=== PATIENT | female | born 1985 | race American Indian/Alaskan Native ===

== ENCOUNTER 2017-02-20 00:58 | Emergency (ER) | payer OTHER ==
--- NOTE | 2017-02-20 02:13 | EDM.PDOC ---
ED HPI Skin/Rash - General Chief Complaint: Laceration Stated Complaint: HEAD WOUND Time Seen by Provider: 02/20/17 02:12 - History of Present Illness INITIAL COMMENTS - FREE TEXT/NARRATIVE: HISTORY AND PHYSICAL: History of present illness: Patient 31-year-old female presents status post fall which she sustained an injury to right face with no loss of consciousness. Review of systems: As per history of present illness and below otherwise all systems reviewed and negative. Past medical history: As per history of present illness and as reviewed below otherwise noncontributory. Surgical history: As per history of present illness and as reviewed below otherwise noncontributory. Social history: No reported history of drug or alcohol abuse. Family history: As per history of present illness and as reviewed below otherwise noncontributory. Physical exam: HEENT: Patient has approximately 3/4 cm moderate depth laceration above her right eye that no bony step off no depression is good hemostasis., normocephalic , pupils reactive, negative for conjunctival pallor or scleral icterus, mucous membranes moist, throat clear, neck supple, nontender, trachea midline. Lungs: Clear to auscultation, breath sounds equal bilaterally, chest nontender. Heart: S1S2, regular, negative for clicks, rubs, or JVD. Abdomen: Soft, nondistended, nontender. Negative for masses or hepatosplenomegaly. Negative for costovertebral tenderness. Pelvis: Stable nontender. Genitourinary: Deferred. Rectal: Deferred. Extremities: Atraumatic, negative for cords or calf pain. Neurovascular unremarkable. Neuro: Awake, alert, oriented. Cranial nerves II through XII unremarkable. Cerebellum unremarkable. Motor and sensory unremarkable throughout. Exam nonfocal. Diagnostics: CT brain Therapeutics: Was irrigated and closed with Steri-Strips Impression: #1 observation status post fall #2 head injury #3 right facial laceration Definitive disposition and diagnosis as appropriate pending reevaluation and review of above. - Related Data Allergies Allergy/AdvReac Type Severity Reaction Status Date / Time No Known Allergies Allergy Verified 02/20/17 01:11 Home Meds: Ambulatory Orders Medication Instructions Recorded Confirmed . 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: Musculoskeletal History: Reports: None Neurological History: Reports: None Psychiatric History: Reports: None Endocrine/Metabolic History: Reports: None Hematologic History: Reports: None Dermatologic History: Reports: None - Infectious Disease History Infectious Disease History: Reports: None - Past Surgical History Female Surgical History: Reports: section, Hysterectomy Social & Family History - Family History Family Medical History: Noncontributory - Tobacco Use Smoking Status *Q: Never Smoker Second Hand Smoke Exposure: No - Caffeine Use Caffeine Use: Reports: None - Alcohol Use Days Per Week of Alcohol Use: 2 Number of Drinks Per Day: 1 Total Drinks Per Week: 2 - Recreational Drug Use Recreational Drug Use: No ED ROS GENERAL - Review of Systems Review Of Systems: ROS reveals no pertinent complaints other than HPI. ED EXAM, SKIN/RASH Exam: See Below (See dictation) Course - Vital Signs Last Recorded V/S: Last Vital Signs Temp 36.1 C 02/20/17 01:11 Pulse 90 02/20/17 01:11 Resp 16 02/20/17 01:11 BP 123/71 02/20/17 01:11 Pulse Ox 98 02/20/17 01:11 - Orders/Labs/Meds Orders: Active Orders 24 hr Category Date Time Status Head wo Cont [CT] Stat Exams 02/20/17 01:08 Taken Departure - Departure Time of Disposition: 02:12 Disposition: Home, Self-Care 01 Condition: good Clinical Impression: Head injury, Facial laceration Forms: ED Department Discharge Additional Instructions: The following information is given to patients seen in the emergency department who are being discharged to home. This information is to outline your options for follow-up care. We provide all patients seen in our emergency department with a follow-up referral. The need for follow-up, as well as the timing and circumstances, are variable depending upon the specifics of your emergency department visit. If you don't have a primary care physician on staff, we will provide you with a referral. We always advise you to contact your personal physician following an emergency department visit to inform them of the circumstance of the visit and for follow-up with them and/or the need for any referrals to a consulting specialist. The emergency department will also refer you to a specialist when appropriate. This referral assures that you have the opportunity for followup care with a specialist. All of these measure are taken in an effort to provide you with optimal care, which includes your followup. Under all circumstances we always encourage you to contact your private physician who remains a resource for coordinating your care. When calling for followup care, please make the office aware that this follow-up is from your recent emergency room visit. If for any reason you are refused follow-up, please contact the [facility] emergency department at and asked to speak to the emergency department charge nurse. Followup primary medical doctor one to 2 days Motrin or Tylenol as directed return as needed as discussed - My Orders Last 24 Hours: My Active Orders 02/20/17 01:08 Head wo Cont [CT] Stat - Assessment/Plan Last 24 Hours: My Active Orders 02/20/17 01:08 Head wo Cont [CT] Stat
[2017-02-20 02:42] VITALS: BP 99/62
--- NOTE | 2017-02-21 10:39 | CT ---
EXAM DATE: 02/20/17 PATIENT'S AGE: 31 Patient: BRANDY COLEY Facility: [place], [place] Site . Site : 1985 Study: CT Head [id number] 1:25:54 AM Ordering Physician: Doctor Joel Final Report: INDICATION: Injury TECHNIQUE: CT head without contrast. COMPARISON: None available FINDINGS: The ventricles and sulci demonstrate normal configuration and size. There is no mass effect or midline shift. There is no loss of parker-white differentiation. There is no evidence of gross acute intracranial hemorrhage. No acute calvarial fracture is seen. There is right maxillary sinus mucosal thickening. There is apparent opacification of few left mastoid tip air cells versus volume averaging. The visualized orbits are within normal limits. IMPRESSION: No evidence of a gross acute intracranial hemorrhage, mass effect or loss of parker-white differentiation. Dictated by Horacio Portillo MD @ 02/20/2017 1:59:39 AM Dictated by: Horacio Portillo MD @ 02/20/2017 01:59:45 (Electronic Signature) Report Signed by Proxy and Original Signed Document filed in the Medical Record. [facility]
== END 2017-02-20 02:30 | disposition home or self-care (01) ==
LOC: MW.ED 00:58
DX: S09.90XA Unspecified injury of head, initial encounter (principal); S01.111A Laceration without foreign body of right eyelid and periocular area, initial encounter; Z90.710 Acquired absence of both cervix and uterus; W19.XXXA Unspecified fall, initial encounter
CPT/HCPCS: 12011; 70450; 70450-26; 99283; 99283-25

== ENCOUNTER 2021-07-20 09:30 | Emergency (ER) | payer BC, OTHER ==
[2021-07-20] MEDS ORDERED: Sodium Chloride 0.9% 1,000 ML IV ONE (09:57)
--- NOTE | 2021-07-20 10:00 | EDM.PDOC ---
ED HPI GENERAL MEDICAL PROBLEM - General Chief Complaint: Gastrointestinal Problem Stated Complaint: ABDOMINAL PAIN Time Seen by Provider: 07/20/21 09:36 Source of Information: Reports: Patient History Limitations: Reports: No Limitations - History of Present Illness INITIAL COMMENTS - FREE TEXT/NARRATIVE: Patient is a 36-year-old female who presents today for diffuse abdominal pain. Patient states the pain started after having a drink of water this morning. She had pain this 15 years ago when she had a type of bowel obstruction. States she has had 3 C-sections and her uterus been removed in the past. The pain is diffuse and nonradiating not made better or worse with anything. She denies any vomiting. States she is having regular bowel movements still passing gas currently. Bilateral Abdominal Pain Score (Numeric/FACES): 8 - Related Data Allergies Allergy/AdvReac Type Severity Reaction Status Date / Time No Known Allergies Allergy Verified 07/20/21 09:45 Home Meds: Home Meds . 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: Musculoskeletal History: Reports: None Neurological History: Reports: None Psychiatric History: Reports: None Endocrine/Metabolic History: Reports: None Hematologic History: Reports: None Dermatologic History: Reports: None - Infectious Disease History Infectious Disease History: Reports: None - Past Surgical History Female Surgical History: Reports: Section, Hysterectomy Social & Family History - Family History Family Medical History: No Pertinent Family History - Tobacco Use Tobacco Use Status *Q: Never Tobacco User - Caffeine Use Caffeine Use: Reports: None - Recreational Drug Use Recreational Drug Use: No ED ROS GENERAL - Review of Systems Review Of Systems: See Below Constitutional: Reports: No Symptoms HEENT: Reports: No Symptoms Respiratory: Reports: No Symptoms Cardiovascular: Reports: No Symptoms Endocrine: Reports: No Symptoms GI/Abdominal: Reports: Abdominal Pain : Reports: No Symptoms Musculoskeletal: Reports: No Symptoms Skin: Reports: No Symptoms Neurological: Reports: No Symptoms Psychiatric: Reports: No Symptoms Hematologic/Lymphatic: Reports: No Symptoms Immunologic: Reports: No Symptoms ED EXAM, GI/ABD - Physical Exam Exam: See Below Exam Limited By: No Limitations General Appearance: Alert, WD/WN, No Apparent Distress Respiratory/Chest: No Respiratory Distress, Lungs Clear, Normal Breath Sounds Cardiovascular: Normal Peripheral Pulses, Regular Rate, Rhythm GI/Abdominal Exam: Normal Bowel Sounds, Soft, Non-Tender Neurological: Alert, Oriented, Normal Cognition, Normal Gait #1 Interpretation EKG Date: 07/20/21 Time: 09:36 Rhythm: NSR Rate (Beats/Min): 85 ST-T: Normal Course - Vital Signs Last Recorded V/S: Last Vital Signs Temp 97.8 F 07/20/21 14:01 Pulse 86 07/20/21 15:13 Resp 17 07/20/21 15:13 BP 112/73 07/20/21 15:13 Pulse Ox 97 07/20/21 15:13 - Orders/Labs/Meds Orders: Active Orders 24 hr Category Date Time Status CULTURE BLOOD [BC] Stat Lab 07/20/21 14:17 Received CULTURE BLOOD [BC] Stat Lab 07/20/21 14:23 Results Sodium Chloride 0.9% [Normal Saline] 1,000 ml Med 07/20/21 15:00 Active IV ASDIRECTED Blood Culture x2 Reflex Set [OM.PC] Stat Oth 07/20/21 14:03 Ordered Blood Culture x2 Reflex Set [OM.PC] Stat Oth 07/20/21 14:04 Ordered Medication Orders Sodium Chloride (Normal Saline) 1,000 mls @ 1,000 mls/hr IV ASDIRECTED JEROME Last Admin: 07/20/21 15:10 Dose: 1,000 mls/hr Documented by: ELLY Labs: Laboratory Tests 07/20/21 07/20/21 07/20/21 Range/Units 09:43 09:43 09:44 WBC 5.93 (4.0-11.0) K/uL RBC 4.51 (4.30-5.90) M/uL Hgb 13.3 (12.0-16.0) g/dL Hct 40.2 (36.0-46.0) % MCV 89.1 (80.0-98.0) fL MCH 29.5 (27.0-32.0) pg MCHC 33.1 (31.0-37.0) g/dL RDW Std Deviation 46.2 (28.0-62.0) fl RDW Coeff of Elisabeth 14 (11.0-15.0) % Plt Count 295 (150-400) K/uL MPV 11.50 (7.40-12.00) fL Neut % (Auto) 83.8 H (48.0-80.0) % Lymph % (Auto) 13.5 L (16.0-40.0) % [place] % (Auto) 1.5 (0.0-15.0) % Eos % (Auto) 1.0 (0.0-7.0) % Baso % (Auto) 0.2 (0.0-1.5) % Neut # (Auto) 5.0 (1.4-5.7) K/uL Lymph # (Auto) 0.8 (0.6-2.4) K/uL [place] # (Auto) 0.1 (0.0-0.8) K/uL Eos # (Auto) 0.1 (0.0-0.7) K/uL Baso # (Auto) 0.0 (0.0-0.1) K/uL Nucleated RBC % 0.0 /100WBC Nucleated RBCs # 0 K/uL Sodium 141 (136-145) mmol/L Potassium 3.8 (3.5-5.1) mmol/L Chloride 104 (98-107) mmol/L Carbon Dioxide 27.0 (21.0-32.0) mmol/L BUN 21 H (7.0-18.0) mg/dL Creatinine 0.9 (0.6-1.0) mg/dL Est Cr Clr Drug Dosing 74.62 mL/min Estimated GFR (MDRD) > 60.0 ml/min Glucose 100 (74-106) mg/dL Calcium 8.7 (8.5-10.1) mg/dL Phosphorus 2.9 (2.6-4.7) mg/dL Magnesium 1.8 (1.8-2.4) mg/dL Total Bilirubin 0.6 (0.2-1.0) mg/dL AST 27 (15-37) IU/L ALT 31 (14-63) IU/L Alkaline Phosphatase 68 (46-116) U/L Total Protein 6.8 (6.4-8.2) g/dL Albumin 3.5 (3.4-5.0) g/dL Globulin 3.3 (2.6-4.0) g/dL Albumin/Globulin Ratio 1.1 (0.9-1.6) Lipase 117 (73-393) U/L Urine Color YELLOW Urine Appearance SLT CLOUDY Urine pH 6.0 (5.0-8.0) Ur Specific [place] >= 1.030 (1.001-1.035) Urine Protein NEGATIVE (NEGATIVE) mg/dL Urine Glucose (UA) NEGATIVE (NEGATIVE) mg/dL Urine Ketones NEGATIVE (NEGATIVE) mg/dL Urine Occult Blood NEGATIVE (NEGATIVE) Urine Nitrite NEGATIVE (NEGATIVE) Urine Bilirubin NEGATIVE (NEGATIVE) Urine Urobilinogen 0.2 (<2.0) EU/dL Ur Leukocyte Esterase NEGATIVE (NEGATIVE) SARS-CoV-2 RNA (LAUREEN) (NEGATIVE) 07/20/21 Range/Units 13:59 WBC (4.0-11.0) K/uL RBC (4.30-5.90) M/uL Hgb (12.0-16.0) g/dL Hct (36.0-46.0) % MCV (80.0-98.0) fL MCH (27.0-32.0) pg MCHC (31.0-37.0) g/dL RDW Std Deviation (28.0-62.0) fl RDW Coeff of Elisabeth (11.0-15.0) % Plt Count (150-400) K/uL MPV (7.40-12.00) fL Neut % (Auto) (48.0-80.0) % Lymph % (Auto) (16.0-40.0) % [place] % (Auto) (0.0-15.0) % Eos % (Auto) (0.0-7.0) % Baso % (Auto) (0.0-1.5) % Neut # (Auto) (1.4-5.7) K/uL Lymph # (Auto) (0.6-2.4) K/uL [place] # (Auto) (0.0-0.8) K/uL Eos # (Auto) (0.0-0.7) K/uL Baso # (Auto) (0.0-0.1) K/uL Nucleated RBC % /100WBC Nucleated RBCs # K/uL Sodium (136-145) mmol/L Potassium (3.5-5.1) mmol/L Chloride (98-107) mmol/L Carbon Dioxide (21.0-32.0) mmol/L BUN (7.0-18.0) mg/dL Creatinine (0.6-1.0) mg/dL Est Cr Clr Drug Dosing mL/min Estimated GFR (MDRD) ml/min Glucose (74-106) mg/dL Calcium (8.5-10.1) mg/dL Phosphorus (2.6-4.7) mg/dL Magnesium (1.8-2.4) mg/dL Total Bilirubin (0.2-1.0) mg/dL AST (15-37) IU/L ALT (14-63) IU/L Alkaline Phosphatase (46-116) U/L Total Protein (6.4-8.2) g/dL Albumin (3.4-5.0) g/dL Globulin (2.6-4.0) g/dL Albumin/Globulin Ratio (0.9-1.6) Lipase (73-393) U/L Urine Color Urine Appearance Urine pH (5.0-8.0) Ur Specific [place] (1.001-1.035) Urine Protein (NEGATIVE) mg/dL Urine Glucose (UA) (NEGATIVE) mg/dL Urine Ketones (NEGATIVE) mg/dL Urine Occult Blood (NEGATIVE) Urine Nitrite (NEGATIVE) Urine Bilirubin (NEGATIVE) Urine Urobilinogen (<2.0) EU/dL Ur Leukocyte Esterase (NEGATIVE) SARS-CoV-2 RNA (LAUREEN) NEGATIVE (NEGATIVE) Meds: Medications Generic Name Dose Route Start Last Admin Trade Name Freq PRN Reason Stop Dose Admin Sodium Chloride 1,000 mls @ 1,000 mls/hr 07/20/21 15:00 07/20/21 15:10 Normal Saline IV 1,000 mls/hr ASDIRECTED JEROME Administration Discontinued Medications Generic Name Dose Route Start Last Admin Trade Name Freq PRN Reason Stop Dose Admin Al Hydroxide/Mg Hydroxide 15 0 ml 07/20/21 12:22 07/20/21 12:30 ml/ Lidocaine HCl 5 ml PO 07/20/21 12:23 20 each ONETIME ONE Administration Fentanyl 50 mcg 07/20/21 10:37 07/20/21 10:50 Fentanyl 50 Mcg/Ml Sdv IVPUSH 07/20/21 10:38 50 mcg ONETIME ONE Administration Fentanyl 50 mcg 07/20/21 14:03 07/20/21 14:08 Fentanyl 50 Mcg/Ml Sdv IVPUSH 07/20/21 14:04 50 mcg ONETIME ONE Administration Sodium Chloride 1,000 mls @ 999 mls/hr 07/20/21 09:57 07/20/21 10:07 Normal Saline IV 07/20/21 10:57 999 mls/hr .BOLUS ONE Administration Piperacillin Sod/Tazobactam 50 mls @ 100 mls/hr 07/20/21 14:03 07/20/21 14:27 Sod 3.375 gm/ Sodium Chloride IV 07/20/21 14:32 100 mls/hr ONETIME ONE Administration Piperacillin Sod/Tazobactam 50 mls @ 100 mls/hr 07/20/21 14:03 07/20/21 15:11 Sod 3.375 gm/ Sodium Chloride IV 07/20/21 14:32 Not Given ONETIME ONE Ketorolac Tromethamine 30 mg 07/20/21 13:15 07/20/21 13:37 Ketorolac 30 Mg/Ml Sdv IVPUSH 07/20/21 13:16 30 mg ONETIME ONE Administration - Re-Assessments/Exams Free Text/Narrative Re-Assessment/Exam: 07/20/21 15:[address] shows a possible perforated gastric ulcer. We spoke to rosamaria Stephen who will set the patient up with general surgery patient will go to the ER with Dr. Onur machuca. Patient was started on maintenance fluids and also antibiotics. Departure - Departure Time of Disposition: 15:52 Disposition: DC/Tfer to Acute Hospital 02 Condition: Good Clinical Impression: Perforated gastric ulcer - Discharge Information *PRESCRIPTION DRUG MONITORING PROGRAM REVIEWED*: Not Applicable *COPY OF PRESCRIPTION DRUG MONITORING REPORT IN PATIENT FRANCISCO JAVIER: Not Applicable Referrals: Sabina Adam MD [Primary Care Provider] - Forms: ED Department Discharge Critical Care Note - Critical Care Note Total Time (mins): 55 Comments: Critical Care Procedure Note Authorized and Performed by: Dr. Chiang Total critical care time: Approximately Due to a high probability of clinically significant, life threatening deterioration, the patient required my highest level of preparedness to intervene emergently and I personally spent this critical care time directly and personally managing the patient. This critical care time included obtaining a history; examining the patient; pulse oximetry; ordering and review of studies; arranging urgent treatment with development of a management plan; evaluation of patient's response to treatment; frequent reassessment; and, discussions with other providers. This critical care time was performed to assess and manage the high probability of imminent, life-threatening deterioration that could result in multi-organ failure. It was exclusive of separately billable procedures and treating other patients and teaching time. Sepsis Event Note (ED) - Focused Exam Vital Signs: Vital Signs Temp Pulse Resp BP Pulse Ox 07/20/21 15:13 86 17 112/73 97 07/20/21 14:01 97.8 F 85 18 109/67 99 07/20/21 13:38 91 18 116/74 100 07/20/21 13:00 83 18 123/80 98 07/20/21 11:02 99 17 137/82 97 07/20/21 09:36 98.7 F 86 18 132/72 100 - My Orders Last 24 Hours: My Active Orders 07/20/21 14:03 Blood Culture x2 Reflex Set [OM.PC] Stat 07/20/21 14:04 Blood Culture x2 Reflex Set [OM.PC] Stat 07/20/21 14:17 CULTURE BLOOD [BC] Stat 07/20/21 14:23 CULTURE BLOOD [BC] Stat 07/20/21 15:00 Sodium Chloride 0.9% [Normal Saline] 1,000 ml IV ASDIRECTED - Assessment/Plan Last 24 Hours: My Active Orders 07/20/21 14:03 Blood Culture x2 Reflex Set [OM.PC] Stat 07/20/21 14:04 Blood Culture x2 Reflex Set [OM.PC] Stat 07/20/21 14:17 CULTURE BLOOD [BC] Stat 07/20/21 14:23 CULTURE BLOOD [BC] Stat 07/20/21 15:00 Sodium Chloride 0.9% [Normal Saline] 1,000 ml IV ASDIRECTED Plan: Patient is a 36-year-old female presents today for diffuse abdominal pain. Patient has diffuse tenderness on exam. Will obtain labs CT scan and reassess.
[2021-07-20 10:27] LABS: BLOOD UREA NITROGEN,BUN 21 mg/dL (7.0-18.0); CHLORIDE,CL 104 mmol/L (98-107); GLUCOSE RANDOM 100 mg/dL (74-106); LIPASE 117 U/L (73-393); POTASSIUM,K 3.8 mmol/L (3.5-5.1); SODIUM,NA 141 mmol/L (136-145)
[2021-07-20] MEDS ORDERED: fentaNYL 50 MCG/ML SDV IVPUSH ONE ×2 (10:37→14:03)
[2021-07-20] MEDS ORDERED: Alum Hydrox/Mag Hydrox/Simeth 15 ML, Lidocaine 2% 5 ML PO ONE ×2 (12:22)
[2021-07-20] MEDS ORDERED: Ketorolac 30 MG/ML SDV IVPUSH ONE (13:15)
--- NOTE | 2021-07-20 13:54 | CT ---
INDICATION: Diffuse abdominal pain. TECHNIQUE: CT of the abdomen and pelvis with 100 cc Isovue 370 IV contrast. Coronal and sagittal reconstructions. COMPARISON: CT of the abdomen and pelvis 01/14/2015. FINDINGS: The liver, gallbladder, spleen, pancreas, and adrenal glands are negative. No biliary dilation. Hepatic and portal veins are patent. Symmetric enhancement of the kidneys. Resolution of the previously-seen ill-defined hypoenhancing region in the lower pole of the right kidney. No hydronephrosis or ureteral dilation. No obstructing urinary calculi identified. The bladder is normal in appearance. Hysterectomy. There is a 3.5 cm cystic lesion in the left adnexa located in a left upper pelvis laterally (series 201, image 130). No abnormality in the right adnexa. Postoperative changes of Titus-en-Y gastric bypass. The jejunojejunostomy is mildly patulous which is a normal postoperative finding. There is a moderate amount of free air layering in the upper abdomen and under the left hemidiaphragm compatible with perforation. A marginal ulceration at the gastrojejunostomy could represent a source of perforation. There are few mildly prominent fluid-filled loops of small bowel in the right lower quadrant with associated mesenteric edema (series 201, image 135). Findings could represent a nonspecific enteritis. No significant wall thickening. No pneumatosis. No evidence of bowel obstruction. Negative appendix. Small amount of free fluid in the pelvis greater than expected for physiologic. Trace amount of free fluid adjacent to the liver and spleen. Small fat containing umbilical hernia. Circumaortic left renal vein. No lymphadenopathy. The bones are unremarkable. Mild bibasilar atelectasis. Bilateral nipple piercings. IMPRESSION: 1. Moderate amount of free air in the upper abdomen, with gas locules about the gastrojejunostomy in the left upper quadrant. Findings could suggest perforation of marginal ulcer. Recommend GI/surgical consult. 2. Few mildly prominent fluid-filled loops of small bowel in the right lower quadrant with associated mesenteric edema. Findings could represent a nonspecific enteritis. No obvious source of perforation in this region. 3. Small amount of free fluid greater than expected for physiologic. 4. 3.5 cm cystic lesion in the left adnexa. This could be further evaluated with pelvic ultrasound. Please note that all CT scans at this facility use dose modulation, iterative reconstruction, and/or weight-based dosing when appropriate to reduce radiation dose to as low as reasonably achievable. Dictated by Shoshana Molina MD @ 07/20/2021 1:53:14 PM (Electronically Signed)
[2021-07-20] MEDS ORDERED: Piperacillin/Tazobactam 3.375 GM in Sodium Chloride 0.9% 50 ML IV ONE ×4 (14:03)
[2021-07-20] MEDS ORDERED: Sodium Chloride 0.9% 1,000 ML IV SCH ×2 (15:00→16:00)
[2021-07-20 15:53] VITALS: BP 137/68; PULSE 95
[2021-07-20] MEDS ORDERED: Morphine 4 MG/ML Syringe IVPUSH ONE ×2 (16:27→16:28)
[2021-07-20] MEDS ORDERED: Iopamidol 755 MG/ML 500 ML Multipack Bottle IVPUSH STA (18:45)
== END 2021-07-20 16:43 ==
LOC: MW.ED 09:30
DX: K25.5 Chronic or unspecified gastric ulcer with perforation (principal); Z20.822 Contact with and (suspected) exposure to COVID-19
CPT/HCPCS: 36415; 74177; 80053; 81003; 83690; 83735; 84100; 85025; 87040; 87635; 93005; 96365; 96375; 96376; 99285; A9270; J1885; J2270; J2543; J3010; J7030; Q9967; U0002

== ENCOUNTER 2022-11-13 16:53 | Emergency (ER) | payer OTHER, BC ==
[2022-11-13 19:52] VITALS: BP 106/68; PULSE 71
== END 2022-11-13 19:50 | disposition home or self-care (01) ==
LOC: MW.ED 16:53
DX: S13.4XXA Sprain of ligaments of cervical spine, initial encounter (principal); S16.1XXA Strain of muscle, fascia and tendon at neck level, initial encounter; V49.40XA Driver injured in collision with unspecified motor vehicles in traffic accident, initial encounter; Y92.410 Unspecified street and highway as the place of occurrence of the external cause
CPT/HCPCS: 70486; 70486-26; 71101-26-RT; 71101-RT; 72125; 72125-26; 99283; 99284